=== PATIENT | male | born 1945 | race Caucasian/White ===

== ENCOUNTER → 2018-01-22 | Outpatient (CLI) | payer OTHER ==
[~2018-01-22] MED LIST: ASPI325 PO; ATOR40TA PO; ESOM20 PO; HYDR1TAB94 PO; Hair, Skin & N1 EACH PO; KETO10 PO; LEVSOD100 PO; LISI5 PO; METO25 PO; POLY500 PO
== END ==
LOC: LAB SHORT 13:10 → LAB 13:10
DX: N20.0 Calculus of kidney (principal)
CPT/HCPCS: 82360

== ENCOUNTER 2018-04-02 09:24 | Observation (INO) | payer OTHER ==
[~2018-04-02] VITALS: Ht 177.8 cm; Wt 84.5 kg
[2018-04-02 10:10] LABS: BASOPHILS ABSOLUTE AUTO 0.07 K/mm3 (0.00-0.23); BASOPHILS PERCENT AUTO 1 % (0-2); EOSINOPHILS ABSOLUTE AUTO 0.35 K/mm3 (0.00-0.68); EOSINOPHILS PERCENT AUTO 3 % (0-6); Hematocrit 44.5 % (37.0-53.0); Hemoglobin 14.8 g/dL (13.5-17.5); IMMATURE GRAN ABSOLUTE AUTO 0.07 K/mm3 (0.00-0.10); IMMATURE GRAN PERCENT AUTO 1 % (0-1); LYMPHOCYTES ABSOLUTE AUTO 1.47 K/mm3 (0.84-5.20); LYMPHOCYTES PERCENT AUTO 14 % (21-46); MONOCYTES ABSOLUTE AUTO 1.22 K/mm3 (0.16-1.47); MONOCYTES PERCENT AUTO 12 % (4-13); Mean Corpuscular HGB 30.3 pg (26.0-34.0); Mean Corpuscular HGB Conc 33.3 g/dL (31.5-36.5); Mean Corpuscular Volume 91 fL (80-100); Mean Platelet Volume 10.4 fL (9.1-12.4); NEUTROPHILS ABSOLUTE AUTO 7.06 K/mm3 (1.96-9.15); NEUTROPHILS PERCENT AUTO 69 % (41-73); Platelet Count 222 K/mm3 (150-400); RDW Coefficient Variation 13.7 % (11.7-14.2); RDW Standard Deviation 46.5 fL (35.1-46.3); Red Blood Cell Count 4.88 M/mm3 (4.30-5.90); White Blood Cell Count 10.24 K/mm3 (4.00-11.30)
[2018-04-02 10:22] LABS: Albumin, Blood 3.7 g/dL (3.4-5.0); Albumin/Globulin Ratio 0.8 (0.8-1.8); Bilirubin, Total 0.5 mg/dL (0.1-1.0); Bun/Creatinine Ratio 15.2 (12.0-20.0); Calcium, Blood 8.9 mg/dL (8.5-10.1); Creatinine, Blood 1.84 mg/dL (0.60-1.20); Globulin, Blood 4.6 g/dL (2.2-4.0); Potassium, Blood 4.3 mmol/L (3.5-5.5); Total Protein, Blood 8.3 g/dL (6.4-8.2); Troponin I 0.033 ng/mL (0.000-0.040)
[2018-04-02] MEDS ORDERED: ELIQUIS5 MG PO (11:00)
[2018-04-02 19:18] LABS: Source, Urine Clean Catch
[2018-04-02 19:21] LABS: Bilirubin, Urine Neg (Neg); Blood, Urine 1+ (Neg); Glucose Qualitative, Urine Neg (Neg); Ketones, Urine 1+ (Neg); Leukocyte Esterase, Urine Neg (Neg); Nitrite, Urine Neg (Neg); Protein, Urine Neg (Neg); Specific Gravity, Urine 1.015 (1.003-1.022); Urobilinogen, Urine NORM (Normal)
[2018-04-02 19:30] LABS: Appearance, Urine Clear (Clear); Color, Urine Yellow (P-Yellow)
[2018-04-02 19:31] LABS: White Blood Cells, Urine 0-2 /hpf (0-5)
[2018-04-02 19:32] LABS: Bacteria Few /hpf; Squamous Epithelial Cells Not Seen /hpf (Few)
[2018-04-03 04:11] LABS: Albumin, Blood 3.4 g/dL (3.4-5.0); Anion Gap 9 mmol/L (6-16); Blood Urea Nitrogen 24 mg/dL (8-24); Bun/Creatinine Ratio 17.1 (12.0-20.0); CO2, Blood 25 mmol/L (21-32); Calcium, Blood 8.4 mg/dL (8.5-10.1); Chloride, Blood 106 mmol/L (98-108); Glomerular Filtration Rate 53 (60-); Glucose, Blood 102 mg/dL (70-99); Phosphorus, Blood 3.8 mg/dL (2.5-4.9); Potassium, Blood 4.5 mmol/L (3.5-5.5); Sodium, Blood 140 mmol/L (136-145)
== END 2018-04-03 17:31 | disposition home or self-care (01) ==
LOC: ER 09:24 → MEDS 09:25 → ER 16:09 → MEDS 18:00
PROVIDERS: Emergency Medicine; Internal Medicine Endocrinology, Diabetes & Metabolism
DX: R42 Dizziness and giddiness (principal); E86.9 Volume depletion, unspecified; R06.09 Other forms of dyspnea; R55 Syncope and collapse; E03.9 Hypothyroidism, unspecified; M54.5 Low back pain; G89.29 Other chronic pain; R51 Headache; E78.5 Hyperlipidemia, unspecified; I44.0 Atrioventricular block, first degree; I47.1 Supraventricular tachycardia; R94.31 Abnormal electrocardiogram [ECG] [EKG]; I10 Essential (primary) hypertension; N17.9 Acute kidney failure, unspecified; I49.9 Cardiac arrhythmia, unspecified; Z87.891 Personal history of nicotine dependence; Z79.82 Long term (current) use of aspirin; Z79.899 Other long term (current) drug therapy; Z86.73 Personal history of transient ischemic attack (TIA), and cerebral infarction without residual deficits
CPT/HCPCS: 36415; 71046; 80053; 80069; 81001; 83880; 84484; 85025; 93005; 93010; 93306; 93880; 99285; G0378

== ENCOUNTER 2019-11-29 06:29 | Day surgery (SDC) | payer OTHER ==
[~2019-11-29] VITALS: Ht 180.3 cm; Wt 82.0 kg
[~2019-11-29 06:29] MED LIST changes: +ASCO500 PO; +CALCIUM CIT 311 EACH PO; +COLACE100 MG PO; +ELIQUIS5 MG PO; +VITAMIN D31000 UNI1 PO; +VITAMIN E1000 UNIT PO
[2019-11-29] MEDS ORDERED: THERA1 EACH PO (06:55)
[2019-11-29] MEDS ORDERED: CHELATED POTASSIUM PO (06:57)
[2019-11-29] MEDS ORDERED: IRON SUPPLEMENT PO (06:58)
--- NOTE | 2019-11-29 10:32 | NUR ---
Pt in large sling on Left arm, Pt is very sensitive to touch. Pt voided 250 louise urine. [place] warmer on per pt request.
--- NOTE | 2019-11-29 10:33 | NUR ---
Breakfast given at bedside.
--- NOTE | 2019-11-29 11:30 | NUR ---
LATE ENTRY: PT. TRANSFERRED BY WHEELCHAIR TO ROOM PCU 5. REPORT GIVEN TO EUNICE WOODS. DRESSING HAS SLIGHT DRAINAGE FROM PROVODINE OINTMENT.SLING IN PLACE.
--- NOTE | 2019-11-30 06:50 | NUR ---
SHIFT SUMMARY. ASSUMED CARE AT 1900. VERY UPSET AT THAT TIME DUE TO HERNANDEZ AND INCISIONAL SORENESS. REPORTS NO ONE WOKE HIM UP TO EAT OR GET PAIN MED
--- NOTE | 2019-11-30 09:47 | NUR ---
PCU DISCHARGE SUMMARY PATIENT AMBULATED OUT OF UNIT WITH - PATIENT EDUCATED ON DISCHARGE INSTRUCTION AND POST PACER PRECAUTIONS. PATIENT AND HIS DENIED ANY QUESTIONS REQUARDING HIS DISCHARGE MEDICATIONS AND INSTRUCTIONS. PATIENT LEFT UNIT IN NO ACUTE DISTRESS.
== END 2019-11-30 09:19 | disposition home or self-care (01) ==
LOC: MHTC 06:29 → PCU 12:21 → MHTC 11-30 09:19
PROC: 0JH608Z Insertion of Defibrillator Generator into Chest Subcutaneous Tissue and Fascia, Open Approach (ICD-10-PCS; principal; 2019-11-29)
PROC: 02H63KZ Insertion of Defibrillator Lead into Right Atrium, Percutaneous Approach (ICD-10-PCS; principal; 2019-11-29)
PROC: 02HK3KZ Insertion of Defibrillator Lead into Right Ventricle, Percutaneous Approach (ICD-10-PCS; principal; 2019-11-29)
DX: I47.2 Ventricular tachycardia (principal); I42.1 Obstructive hypertrophic cardiomyopathy; I49.5 Sick sinus syndrome; I48.92 Unspecified atrial flutter; I42.2 Other hypertrophic cardiomyopathy; E78.5 Hyperlipidemia, unspecified; E03.9 Hypothyroidism, unspecified; I10 Essential (primary) hypertension; Z87.891 Personal history of nicotine dependence; Z79.899 Other long term (current) drug therapy; Z79.01 Long term (current) use of anticoagulants; I27.20 Pulmonary hypertension, unspecified
CPT/HCPCS: 33249; 71045; 71046; 76937; 99152; 99153; A9270; A9270-GY; C1721; C1895; C1898; J0360; J0690; J2250; J2405; J3010; J7030

== ENCOUNTER 2019-12-24 21:18 | Emergency (ER) | payer OTHER ==
[~2019-12-24] VITALS: Ht 172.7 cm; Wt 81.7 kg
[~2019-12-24 21:18] MED LIST changes: +CHELATED POTASSIUM PO; +IRON SUPPLEMENT PO; +THERA1 EACH PO
[2019-12-24 21:47] LABS: BASOPHILS ABSOLUTE AUTO 0.06 K/mm3 (0.00-0.23); BASOPHILS PERCENT AUTO 1 % (0-2); EOSINOPHILS ABSOLUTE AUTO 0.23 K/mm3 (0.00-0.68); EOSINOPHILS PERCENT AUTO 4 % (0-6); Hematocrit 43.7 % (37.0-53.0); Hemoglobin 14.5 g/dL (13.5-17.5); IMMATURE GRAN ABSOLUTE AUTO 0.01 K/mm3 (0.00-0.10); IMMATURE GRAN PERCENT AUTO 0 % (0-1); LYMPHOCYTES PERCENT AUTO 25 % (21-46); MONOCYTES ABSOLUTE AUTO 0.69 K/mm3 (0.16-1.47); MONOCYTES PERCENT AUTO 11 % (4-13); Mean Corpuscular HGB 30.5 pg (26.0-34.0); Mean Corpuscular HGB Conc 33.2 g/dL (31.5-36.5); Mean Corpuscular Volume 92 fL (80-100); Mean Platelet Volume 10.4 fL (9.1-12.4); NEUTROPHILS ABSOLUTE AUTO 3.64 K/mm3 (1.96-9.15); NEUTROPHILS PERCENT AUTO 59 % (41-73); Platelet Count 157 K/mm3 (150-400); RDW Coefficient Variation 13.7 % (11.7-14.2); RDW Standard Deviation 46.6 fL (35.1-46.3); Red Blood Cell Count 4.76 M/mm3 (4.30-5.90); White Blood Cell Count 6.13 K/mm3 (4.00-11.30)
[2019-12-24 22:05] LABS: Alanine Aminotransfer (ALT/SGP 29 U/L (12-78); Albumin, Blood 3.7 g/dL (3.4-5.0); Albumin/Globulin Ratio 0.9 (0.8-1.8); Alk Phos 97 U/L (50-136); Anion Gap 5 mmol/L (6-16); Aspartate Aminotrans (AST/SGOT 30 U/L (12-37); Bilirubin, Total 0.3 mg/dL (0.1-1.0); Blood Urea Nitrogen 8 mg/dL (8-24); Bun/Creatinine Ratio 6.6 (12.0-20.0); CO2, Blood 27 mmol/L (21-32); Calcium, Blood 9.1 mg/dL (8.5-10.1); Chloride, Blood 110 mmol/L (98-108); Creatinine, Blood 1.21 mg/dL (0.60-1.20); Globulin, Blood 4.3 g/dL (2.2-4.0); Glomerular Filtration Rate >60 (60-); Glucose, Blood 105 mg/dL (70-99); International Normalized Ratio 1.07; Potassium, Blood 3.9 mmol/L (3.5-5.5); Prothrombin Time Results 11.4 Sec (9.7-11.5); Sodium, Blood 142 mmol/L (136-145)
== END 2019-12-24 23:10 | disposition home or self-care (01) ==
LOC: ER 21:18
PROVIDERS: Emergency Medicine
DX: G45.9 Transient cerebral ischemic attack, unspecified (principal); E03.9 Hypothyroidism, unspecified; E78.5 Hyperlipidemia, unspecified; Z87.891 Personal history of nicotine dependence; Z79.899 Other long term (current) drug therapy
CPT/HCPCS: 36415; 70450; 80053; 85025; 85610; 85730; 93005; 93010; 99285-25

== ENCOUNTER 2020-02-14 11:30 | Day surgery (SDC) | payer OTHER ==
[~2020-02-14] VITALS: Ht 177.8 cm; Wt 79.1 kg
[2020-02-14] MEDS ORDERED: ASPI81CH PO (12:44)
[2020-02-14] MEDS ORDERED: LISI5 (12:44)
--- NOTE | 2020-02-14 16:25 | NUR ---
ASSUMED CARE PT. ARRIVES TO ICU. DROWSY PALE IN COLOR. AFEBRILE. PT. ACE, REPORTS USING CANE FOR AMBULATION. PT. HAS PRESSURE DRESSING TO LEFT CHEST WALL. PT INSTRUCTED ON MOBILITY OF LEFT ARM. VSS UPON ARRIVAL. PT UPDATED ON PT CONDITION AND ARRIVAL TO UNIT. HX OBTAINED FROM PT . PER PT. PT HAS DIFFICULTY SWALLOWING AND NEEDS SOFT PUREED FOODS, DUE TO RECENT CVA. CALL LIGHT IN REACH.
--- NOTE | 2020-02-14 18:02 | NUR ---
SHIFT SUMMARY PT. REMAINS DROWSY POST PROCEDURE HOWEVER AWAKENS EASILY TO VERBAL STIMULI. PT. VSS SINCE ARRIVAL TO ICU. PRESSURE DRESSING REMAINS CDI. NADN. PLANS FOR DISCHARGE TOMORROW. PT UPDATE. REPORT TO ONCOMING RN.
--- NOTE | 2020-02-14 21:30 | NUR ---
ASSUMPTION OF CARE ASSUMED CARE OF PT @ 1900, PT AWAKE IN BED ORIENTED TO SELF, LOCATION, EVENT, AND FOLLOWING DIRECTIONS. 02 SATURATIONS>90% ON RA, MONITOR SHOWS PACED RHYTHM WITH HR 60-64, PT HYPERTENSIVE, SCHEDULED BP MEDICATIONS PROVIDED. PT MEDICATED FOR PAIN TO THE LEFT ARM/SHOULDER RELATED TO AICD PROCEDURE, LEFT ARM REMAINS AT PTS SIDE TO PREVENT PACER DISPLACEMENT. PT VOIDS IN URINAL WITH MINIMAL ASSISTANCE. PT TOLERATING PO INTAKE, EATING WITH MINIMAL ASSISTANCE, SWALLOWS PILLS WHOLE, ONE AT A TIME, WITH PUDDING. CALL LIGHT WITHIN REACH.
--- NOTE | 2020-02-15 00:32 | NUR ---
PT RESTING IN BED, AROUSES TO VERBAL STIMULI, REMAINS ORIENTED x4, DENIES ANY NEEDS AT THIS TIME.
--- NOTE | 2020-02-15 06:07 | NUR ---
SHIFT SUMMARY PT RESTED T/O SHIFT, REMAINS AROUSABLE TO VERBAL STIMULI AND ORIENTED TO SELF, EVENT, LOCATION AND FOLLOWING DIRECTIONS. PT REMAINS ON RA ALL NIGHT, O2 SATURATIONS MAINTAINED>95%, MONITOR SHOWS PACED RHYTHM, BP STABLE. PT VOIDING IN URINAL AT BEDSIDE WITH MINIMAL ASSISTANCE, TOLERATING PO INTAKE. L ANTERIOR SURGICAL SITE WITH PRESSURE DRESSING C/D/I, PT REPORTS SOME PAIN WITH MOVEMENT OR SMALL ADJUSTMENTS, NORCO PROVIDED AT BEGINNING OF SHIFT, DECLINES PAIN MEDICATIONS THIS AM. PT CURRENTLY AWAKE WATCHING TV IN BED, CALL LIGHT WITHIN REACH.
--- NOTE | 2020-02-15 08:35 | NUR ---
ASSESSMENT- PT AWAKE, ALERT, COOPERATIVE. STATES LEFT CHEST SORE-RATES 1 ON SCALE, DENIES ANY NEED FOR PAIN RX. DR. OLEARY HERE-UPDATED. PLANS FOR DISCHARGE, REVIEWED INSTRUCTIONS. PT STATES UNDERSTANDING. NEED TO SLEEP ON RIGHT SIDE OR BACK, NOT ON LEFT. RESTRICTIONS FOR ARM REVIEWED. VSS. ABLE TO TAKE PILLS WITH APPLESAUCE. PIV INTACT, ANTIBIOTIC INFUSING
[2020-02-15] MEDS ORDERED: LINE600 PO (09:53)
--- NOTE | 2020-02-15 10:12 | NUR ---
PT'S DAUGHTER HERE-REVIEWED DISCHARGE INSTRUCTIONS WITH HER, QUESTIONS ANSWERED
--- NOTE | 2020-02-15 10:41 | NUR ---
DISCHARGE INSTRUCTIONS REVIEWED WITH PT BY HODA WOODS. PT STATES UNDERSTANDING. LEFT ARM SLING IN PLACE. PT DENIES COMPLAINTS.
== END 2020-02-15 10:35 | disposition home or self-care (01) ==
LOC: MHTC 11:30 → ICUE 16:29 → MHTC 02-15 10:35
DX: T82.837A Hemorrhage due to cardiac prosthetic devices, implants and grafts, initial encounter (principal); I10 Essential (primary) hypertension; Z87.891 Personal history of nicotine dependence; Z79.82 Long term (current) use of aspirin; Z79.01 Long term (current) use of anticoagulants; Z79.899 Other long term (current) drug therapy
CPT/HCPCS: 10140; 99152; 99153; A9270-GY; C1781; C9113; J0690; J1644; J2250; J3010; J7030; J7040; J7050

== ENCOUNTER 2020-03-21 07:43 | Day surgery (SDC) | payer OTHER ==
[~2020-03-21] VITALS: Ht 177.8 cm; Wt 75.7 kg
[~2020-03-21 07:43] MED LIST changes: +ASPI81CH PO; +LINE600 PO; +LISI5
--- NOTE | 2020-03-21 10:36 | NUR ---
03/21/20 1036 Shawna Royal PT. VERBALIZES HAS A SORE THROAT BUT NO TROUBLE SWALLOWING. PT. INSTRUCTED HE COULD HAVE A SORE THROAT FOR MAYBE A COUPLE OF DAYS SINCE DR. ROMAN DID DILITATION.
== END 2020-03-21 10:19 | disposition home or self-care (01) ==
LOC: ORSCSDS 07:43
PROVIDERS: Internal Medicine Gastroenterology
PROC: 0DJ08ZZ Inspection of Upper Intestinal Tract, Via Natural or Artificial Opening Endoscopic (ICD-10-PCS; principal; 2020-03-21 09:15)
PROC: 0D758ZZ Dilation of Esophagus, Via Natural or Artificial Opening Endoscopic (ICD-10-PCS; principal; 2020-03-21 09:15)
DX: R13.10 Dysphagia, unspecified (principal); I25.2 Old myocardial infarction; E03.9 Hypothyroidism, unspecified; E78.5 Hyperlipidemia, unspecified; D64.9 Anemia, unspecified; K21.9 Gastro-esophageal reflux disease without esophagitis; Z87.891 Personal history of nicotine dependence; I48.0 Paroxysmal atrial fibrillation; Z79.01 Long term (current) use of anticoagulants; Z79.899 Other long term (current) drug therapy
CPT/HCPCS: J2405; J2704; J7120

== ENCOUNTER → 2020-03-26 | Outpatient (CLI) | payer OTHER | END | disposition home or self-care (01) | LOC: LAB SHORT 10:37 → LAB EV 10:37 | DX: L30.4 Erythema intertrigo (principal) | CPT/HCPCS: 87070; 87205 ==

== ENCOUNTER → 2021-02-23 | Outpatient (CLI) | payer OTHER ==
[~2021-02-23] MED LIST changes: -ASPI81CH PO; +Aspir 8181 MG PO; +CALCIUM 600 +1 EA11 PO; -CALCIUM CIT 311 EACH PO; +FAMO20 PO; +LEVE500 PO; -LISI5; +MULVITA PO; -THERA1 EACH PO
[2021-02-23 10:43] LABS: BASOPHILS ABSOLUTE AUTO 0.05 K/mm3 (0.00-0.23); BASOPHILS PERCENT AUTO 1 % (0-2); EOSINOPHILS ABSOLUTE AUTO 0.18 K/mm3 (0.00-0.68); EOSINOPHILS PERCENT AUTO 3 % (0-6); Hematocrit 45.2 % (37.0-53.0); IMMATURE GRAN ABSOLUTE AUTO 0.01 K/mm3 (0.00-0.10); IMMATURE GRAN PERCENT AUTO 0 % (0-1); LYMPHOCYTES ABSOLUTE AUTO 1.04 K/mm3 (0.84-5.20); LYMPHOCYTES PERCENT AUTO 19 % (21-46); MONOCYTES ABSOLUTE AUTO 0.56 K/mm3 (0.16-1.47); MONOCYTES PERCENT AUTO 11 % (4-13); Mean Corpuscular HGB 30.1 pg (26.0-34.0); Mean Corpuscular HGB Conc 33.2 g/dL (31.5-36.5); Mean Corpuscular Volume 91 fL (80-100); NEUTROPHILS ABSOLUTE AUTO 3.51 K/mm3 (1.96-9.15); NEUTROPHILS PERCENT AUTO 66 % (41-73); Platelet Count 156 K/mm3 (150-400); RDW Coefficient Variation 14.4 % (11.7-14.2); RDW Standard Deviation 47.7 fL (35.1-46.3); Red Blood Cell Count 4.98 M/mm3 (4.30-5.90); White Blood Cell Count 5.35 K/mm3 (4.00-11.30)
[2021-02-23 10:52] LABS: Alanine Aminotransfer (ALT/SGP 53 U/L (12-78); Alk Phos 88 U/L (40-126); Amylase, Blood 39 U/L (25-115); Anion Gap 8 mmol/L (6-16); Aspartate Aminotrans (AST/SGOT 32 U/L (12-37); Bilirubin, Total 0.5 mg/dL (0.1-1.0); Blood Urea Nitrogen 19 mg/dL (8-24); Bun/Creatinine Ratio 16.7 (12.0-20.0); CO2, Blood 29 mmol/L (21-32); Calcium, Blood 8.9 mg/dL (8.5-10.1); Chloride, Blood 105 mmol/L (98-108); Creatinine, Blood 1.14 mg/dL (0.60-1.20); Globulin, Blood 3.9 g/dL (2.2-4.0); Glomerular Filtration Rate >60 (60-); Glucose, Blood 106 mg/dL (70-99); Potassium, Blood 4.3 mmol/L (3.5-5.5); Sodium, Blood 142 mmol/L (136-145); Total Protein, Blood 7.9 g/dL (6.4-8.2)
== END | disposition home or self-care (01) ==
LOC: LAB EV 10:37 → LAB SHORT 10:37
PROVIDERS: General Practice
DX: R14.0 Abdominal distension (gaseous) (principal)
CPT/HCPCS: 80053; 82150; 85025

== ENCOUNTER 2021-09-19 10:42 | Inpatient (IN) | payer OTHER ==
[~2021-09-19] VITALS: Ht 177.8 cm; Wt 77.7 kg
[2021-09-19 11:00] LABS: Calcium, Ionized (POC) 1.18 mmol/L (1.10-1.46); Chloride (POC) 109 mmol/L (98-108); Creatinine (POC) 1.3 mg/dL (0.8-1.3); Glucose (ISTAT POC) 103 mg/dL (70-99); Hemoglobin (POC) 16.3 g/dL (13.5-17.5); PCO2 Arterial 42.8 mmHg (35-45); PO2 Arterial 256 mmHg (80-100); Sodium (POC) 144 mmol/L (135-148); Total CO2 (POC) 20 mmol/L (21-32); pH Blood Arterial 7.29 (7.35-7.45)
[2021-09-19 11:23] LABS: Albumin, Blood 3.8 g/dL (3.4-5.0); Albumin/Globulin Ratio 0.8 (0.8-1.8); Bilirubin, Total 0.4 mg/dL (0.1-1.0); Bun/Creatinine Ratio 9.2 (12.0-20.0); Calcium, Blood 9.3 mg/dL (8.5-10.1); Creatinine, Blood 1.3 mg/dL (0.60-1.20); Globulin, Blood 4.5 g/dL (2.2-4.0); Potassium, Blood 3.9 mmol/L (3.5-5.5); Total Protein, Blood 8.3 g/dL (6.4-8.2); Troponin I 0.026 ng/mL (0.000-0.040)
[2021-09-19 11:33] LABS: International Normalized Ratio 1.14; Prothrombin Time Results 11.9 Sec (9.7-11.5)
[2021-09-19 11:37] LABS: BASOPHILS ABSOLUTE AUTO 0.08 K/mm3 (0.00-0.23); BASOPHILS PERCENT AUTO 1 % (0-2); EOSINOPHILS ABSOLUTE AUTO 0.16 K/mm3 (0.00-0.68); EOSINOPHILS PERCENT AUTO 3 % (0-6); Hematocrit 47.7 % (37.0-53.0); Hemoglobin 15.4 g/dL (13.5-17.5); IMMATURE GRAN ABSOLUTE AUTO 0.06 K/mm3 (0.00-0.10); IMMATURE GRAN PERCENT AUTO 1 % (0-1); LYMPHOCYTES ABSOLUTE AUTO 2.03 K/mm3 (0.84-5.20); LYMPHOCYTES PERCENT AUTO 34 % (21-46); MONOCYTES ABSOLUTE AUTO 0.69 K/mm3 (0.16-1.47); MONOCYTES PERCENT AUTO 12 % (4-13); Mean Corpuscular HGB 30.3 pg (26.0-34.0); Mean Corpuscular HGB Conc 32.3 g/dL (31.5-36.5); Mean Corpuscular Volume 94 fL (80-100); Mean Platelet Volume 11.1 fL (9.1-12.4); NEUTROPHILS ABSOLUTE AUTO 2.94 K/mm3 (1.96-9.15); NEUTROPHILS PERCENT AUTO 49 % (41-73); Platelet Count 159 K/mm3 (150-400); RDW Coefficient Variation 13.7 % (11.7-14.2); RDW Standard Deviation 46.9 fL (35.1-46.3); Red Blood Cell Count 5.09 M/mm3 (4.30-5.90); White Blood Cell Count 5.96 K/mm3 (4.00-11.30)
[2021-09-19 11:53] LABS: Influenza A, PCR NEGATIVE (NEGATIVE); Influenza B, PCR NEGATIVE (NEGATIVE); Resp Syncytial Virus, PCR NEGATIVE (NEGATIVE); SARS-Cov-2 (COVID-19) PCR, MMC NEGATIVE (NEGATIVE)
--- NOTE | 2021-09-19 17:39 | NUR ---
EXTUBATED, AOX2 TO SELF AND TIME, SHORT TERM MEMORY ISSUES, FREQUENT REMINDERS ABOUT CARE DESPITE EDUCATION, PUPILS 3MM BRISK,FACIAL DROOP L SIDE AND L SIDED WEAKNESS BASELINE PER , WELL SOME SLURRING SPEECH, NSR 70/80S, +2 PULSES, BP WNL TO HTN SBP<160, LUNGS COARSE TOLERATING 2L NC, GRAJEDA DRAINING CLEAR YELLOW OUTPUT, BOWELS AUDIBLE, CT HEAD NEGATIVE, MRI PENDING FOR TOMORROW.
--- NOTE | 2021-09-19 20:49 | NUR ---
ASSUME CARE: PT LYING IN BED AND IS ALERT AND ORIENTED EXCEPT TO EVENT. HE HAS SOME LEFT-SIDE FACIAL DROOPING AND WEAKNESS THAT IS, PER HIS , HIS BASELINE FROM A PRIOR CVA. ON 2LNC HE IS SATING 97% AND ALL VITALS ARE WNL. GRAJEDA IN PLACE IS DRAINING CLEAR, YELLOW URINE TO GRAVITY. HE IS NPO FOR A FAILED BEDSIDE SWALLOW. HE DENIES PAIN AND DOES NOT REMEMBER HIS LBM. SKIN IS WARM, DRY, AND INTACT. SEE SHIFT ASSESSMENT FOR DETAILS.
[2021-09-20 03:50] LABS: BASOPHILS ABSOLUTE AUTO 0.04 K/mm3 (0.00-0.23); BASOPHILS PERCENT AUTO 1 % (0-2); EOSINOPHILS ABSOLUTE AUTO 0.04 K/mm3 (0.00-0.68); EOSINOPHILS PERCENT AUTO 1 % (0-6); Hematocrit 43.2 % (37.0-53.0); Hemoglobin 14.4 g/dL (13.5-17.5); IMMATURE GRAN ABSOLUTE AUTO 0.02 K/mm3 (0.00-0.10); IMMATURE GRAN PERCENT AUTO 0 % (0-1); LYMPHOCYTES ABSOLUTE AUTO 1.07 K/mm3 (0.84-5.20); LYMPHOCYTES PERCENT AUTO 13 % (21-46); MONOCYTES ABSOLUTE AUTO 0.74 K/mm3 (0.16-1.47); MONOCYTES PERCENT AUTO 9 % (4-13); Mean Corpuscular HGB 29.8 pg (26.0-34.0); Mean Corpuscular HGB Conc 33.3 g/dL (31.5-36.5); Mean Platelet Volume 10.8 fL (9.1-12.4); NEUTROPHILS ABSOLUTE AUTO 6.25 K/mm3 (1.96-9.15); NEUTROPHILS PERCENT AUTO 77 % (41-73); Platelet Count 151 K/mm3 (150-400); RDW Coefficient Variation 13.7 % (11.7-14.2); RDW Standard Deviation 44.8 fL (35.1-46.3); Red Blood Cell Count 4.83 M/mm3 (4.30-5.90); White Blood Cell Count 8.16 K/mm3 (4.00-11.30)
[2021-09-20 04:02] LABS: Mean Corpuscular Volume 89 fL (80-100)
[2021-09-20 04:32] LABS: Bun/Creatinine Ratio 12.4 (12.0-20.0); Calcium, Blood 8.9 mg/dL (8.5-10.1); Creatinine, Blood 1.21 mg/dL (0.60-1.20); Potassium, Blood 3.9 mmol/L (3.5-5.5)
--- NOTE | 2021-09-20 07:10 | NUR ---
SHIFT SUMMARY: NO ACUTE OVERNIGHT EVENTS. PT SLEPT MOST THE NIGHT W/ NO COMPLAINTS. HE IS ALERT AND ORIENTED AND DENIES PAIN. LEFT-SIDED DEFICETS REMAINED STABLE/BASELINE. ALL VITALS WNL AND TMAX WAS 99.3. REPORT GIVEN TO YESSENIA WOODS.
--- NOTE | 2021-09-20 10:06 | NUR ---
I called and talked to Svetlana Vera who is the patient's . She states that the patient lives in a two story home with her and their son who help him with ADLs. Pt has received home health services in the past and prefers [facility] for home health. Pt's prefers to do the driving given the pt's past medical history. Son also helps with transportation. Pt does not currently have any dme - will wait for PT to evaluate patient for recommendations. Pts also helps with medication management and states they would prefer [facility] if it is recommended the pt discharge to a SNF. Pt is not a .
--- NOTE | 2021-09-20 17:07 | NUR ---
SHIFT SUMMARY NO ACUTE CHANGES THIS SHIFT. PT HAS REMAINED AWAKE, ALERT, AND ORIENTED THROUGHOUT THE DAY WITH PERIODS OF NAPPING. PT HAS DENIED ANY PAIN OR DISCOMFORT. VITAL SIGNS HAVE REMAINED STABLE. PT ON ROOM AIR. PT WORKED WITH PT AND OT THIS SHIFT. PT UP OUT OF BED WITH MINIMAL ASSISTANCE TO VOID. IV'S SALINE LOCKED. PT TOLERATING PO FOODS WELL. PT SPOUSE AT BEDSIDE THIS AFTERNOON. WILL CONTINUE TO MONITOR AND REPORT OFF TO ONCOMING RN.
--- NOTE | 2021-09-20 21:26 | NUR ---
ASSUME CARE: PT RESTING BUT IS EASILY AROUSABLE AND ALERT AND ORIENTED. HE USES THE BEDSIDE URINAL AND IS UP TO THE TOILET W/ 1 ASSIST. SOME SLURRED SPEECH AND LEFT-SIDED DEFICETS THAT ARE BASELINE NOTED. HE IS ON RA AND ALL VITALS WNL. HE DENIES PAIN AND IS AFEBRILE. HE IS ABLE TO TAKE HIS MEDICATIONS WHOLE W/ APPLESAUCE. HIS 2 PIVS ARE C/D/I AND SALINE LOCKED. PLAN IS TO GO TOMORROW. SEE SHIFT ASSESSMENT FOR DETAILS.
--- NOTE | 2021-09-21 05:46 | NUR ---
SHIFT SUMMARY: NO ACUTE OVERNIGHT EVENTS. PT RESTING QUIETLY IN BED AND IS EASILY AROUSABLE AND ALERT/ORIENTED. HE HAS NO COMPLAINTS OF PAIN AND HAS REMAINED AFEBRILE. HE IS ON RA AND ALL VITALS HAVE REMAINED STABLE. HE USES THE BEDSIDE URINAL TO VOID AND HAD NO BM OVERNIGHT. HE TOLERATED TAKING HIS MEDS WHOLE WITH APPLESAUCE. ONLY SLIGHT BASELINE LEFT-SIDED DEFICETS ARE NOTED. WILL REPORT TO ONCOMING RN WHEN AVAILABLE.
--- NOTE | 2021-09-21 08:00 | NUR ---
ASSUMED CARE PT. ALERT AND ORIENTED THIS AM. DENIES PAIN. SITTING UP IN BED AWAITING BREAKFAST. PT. VSS THIS AM. NADN. CALL LIGHT IN REACH.
--- NOTE | 2021-09-21 13:40 | NUR ---
PT DISCHARGED HOME. ABLE TO GET SELF DRESSED WITH MINIMAL ASSIST FROM . VSS UPON DISCHARGE. PT. DISCHARGE INSTRUCTIONS REVIEWED WITH AND PATIENT. NO CHANGES TO MEDICATIONS AT THIS TIME. IVS REMOVED AND PT WHEELED TO EXIT.
--- NOTE | 2021-09-21 15:10 | NUR ---
Per chart review with Dr. Arriaga, patient is appropriate for discharge. Patient denied barriers to discharge. Patient's , Pat, provided transportation for patient to discharge from [facility]. Home health services were ordered by Dr. Arriaga. I contacted Summer with [facility] and she contacted the patient to start those services. I also scheduled a hospital follow up with Ifeoma Rhodes on Friday, September 24, 2021 at 11:00 AM. Pt and his are aware of the follow up.
== END 2021-09-21 13:50 | disposition home or self-care (01) | DRG 100 ==
LOC: ER 10:42 → ICUW 13:34 → ICUE 13:34
PROVIDERS: Emergency Medicine; ADMIT Internal Medicine
PROC: 5A1935Z Respiratory Ventilation, Less than 24 Consecutive Hours (ICD-10-PCS; principal; 2021-09-19)
DX: G40.409 Other generalized epilepsy and epileptic syndromes, not intractable, without status epilepticus (principal); J96.90 Respiratory failure, unspecified, unspecified whether with hypoxia or hypercapnia; E87.2 Acidosis; I42.1 Obstructive hypertrophic cardiomyopathy; Z20.822 Contact with and (suspected) exposure to COVID-19; I48.91 Unspecified atrial fibrillation; I65.21 Occlusion and stenosis of right carotid artery; K21.9 Gastro-esophageal reflux disease without esophagitis; E03.9 Hypothyroidism, unspecified; N40.0 Benign prostatic hyperplasia without lower urinary tract symptoms; I10 Essential (primary) hypertension; E78.5 Hyperlipidemia, unspecified; I25.10 Atherosclerotic heart disease of native coronary artery without angina pectoris; Z86.73 Personal history of transient ischemic attack (TIA), and cerebral infarction without residual deficits; Z98.890 Other specified postprocedural states; Z79.01 Long term (current) use of anticoagulants; Z79.899 Other long term (current) drug therapy; Z85.89 Personal history of malignant neoplasm of other organs and systems
CPT/HCPCS: 0241U; 36415; 36600; 51702; 70450; 70496; 70498; 71045; 80047; 80048; 80053; 80177; 82803; 82947; 83735; 84484; 85014; 85025; 85610; 85730; 92610; 93005; 93010; 94002; 96365-59; 96375-59; 97116; 97162; 97165; 97530; 99291-25; A9270; J1650; J1953; J2060; J2704; Q9967

== ENCOUNTER → 2023-01-15 | Outpatient (CLI) | payer OTHER ==
[2023-01-15 11:57] LABS: BASOPHILS ABSOLUTE AUTO 0.05 K/mm3 (0.00-0.23); BASOPHILS PERCENT AUTO 1 % (0-2); EOSINOPHILS ABSOLUTE AUTO 0.13 K/mm3 (0.00-0.68); EOSINOPHILS PERCENT AUTO 3 % (0-6); Hematocrit 44.2 % (37.0-53.0); Hemoglobin 14.7 g/dL (13.5-17.5); IMMATURE GRAN ABSOLUTE AUTO 0.01 K/mm3 (0.00-0.10); IMMATURE GRAN PERCENT AUTO 0 % (0-1); LYMPHOCYTES ABSOLUTE AUTO 1.04 K/mm3 (0.84-5.20); LYMPHOCYTES PERCENT AUTO 20 % (21-46); MONOCYTES ABSOLUTE AUTO 0.58 K/mm3 (0.16-1.47); MONOCYTES PERCENT AUTO 11 % (4-13); Mean Corpuscular HGB 29.5 pg (26.0-34.0); Mean Corpuscular HGB Conc 33.3 g/dL (31.5-36.5); Mean Corpuscular Volume 89 fL (80-100); Mean Platelet Volume 10.6 fL (9.1-12.4); NEUTROPHILS ABSOLUTE AUTO 3.39 K/mm3 (1.96-9.15); NEUTROPHILS PERCENT AUTO 65 % (41-73); Platelet Count 146 K/mm3 (150-400); RDW Coefficient Variation 13.8 % (11.7-14.2); Red Blood Cell Count 4.98 M/mm3 (4.30-5.90)
== END | disposition home or self-care (01) ==
LOC: LAB 11:49 → LAB SHORT 11:49
PROVIDERS: Physician Assistant
DX: K62.5 Hemorrhage of anus and rectum (principal)
CPT/HCPCS: 85025

== ENCOUNTER 2023-10-23 12:39 | Day surgery (SDC) | payer OTHER ==
[~2023-10-23] VITALS: Ht 172.7 cm; Wt 89.6 kg
[~2023-10-23 12:39] MED LIST changes: +CALTRATE 600 P1 EACH PO; +Lopressor 25 mg25 MG PO; +MULTI-VITAMIN1 EAC2 PO
[2023-10-23] MEDS ORDERED: Triamcinolone A15 G3 TOP (13:08)
[2023-10-23] MEDS ORDERED: ALEVAZOL56.7 G1 TOP (13:09)
[2023-10-23] MEDS ORDERED: POLY500 PO (13:09)
[2023-10-23 14:55] VITALS: BP 115/72
--- NOTE | 2023-10-23 14:56 | NUR ---
10/23/23 1456 Kya Raza IV, DC'Ellen AT 1440/CATHETER WNL
== END 2023-10-23 14:50 | disposition home or self-care (01) ==
LOC: ORSCSDS 12:39
PROVIDERS: Specialist
PROC: 0DJ08ZZ Inspection of Upper Intestinal Tract, Via Natural or Artificial Opening Endoscopic (ICD-10-PCS; principal; 2023-10-23 13:45)
DX: R13.10 Dysphagia, unspecified (principal); I10 Essential (primary) hypertension; I48.91 Unspecified atrial fibrillation; Z87.891 Personal history of nicotine dependence; K21.9 Gastro-esophageal reflux disease without esophagitis; R56.9 Unspecified convulsions; Z79.899 Other long term (current) drug therapy
CPT/HCPCS: J2001; J2704; J7120

== ENCOUNTER → 2024-08-09 | Outpatient (CLI) | payer OTHER ==
[~2024-08-09] MED LIST changes: +ALEVAZOL56.7 G1 TOP; +Triamcinolone A15 G3 TOP
[2024-08-10 08:44] LABS: Adenovirus F 40/41 Not Detected (NOT DETECT); Astrovirus Not Detected (NOT DETECT); Campylobacter Sp Not Detected (NOT DETECT); Cryptosporidium Not Detected (NOT DETECT); Cyclospora Cayetanensis Not Detected (NOT DETECT); E. Coli O157 Not Detected (NOT DETECT); Entamoeba Histolytica Not Detected (NOT DETECT); Enteroaggregative E. coli-EAEC Not Detected (NOT DETECT); Enteropathogenic E. coli-EPEC Not Detected (NOT DETECT); Enterotoxigenic E. coli-ETEC Not Detected (NOT DETECT); Giardia Lamblia Not Detected (NOT DETECT); Norovirus GI/GII Not Detected (NOT DETECT); Plesiomonas Shigelloides Not Detected (NOT DETECT); Rotavirus A Not Detected (NOT DETECT); Salmonella Sp Not Detected (NOT DETECT); Sapovirus Not Detected (NOT DETECT); Shiga Toxin-prod E. coli-STEC Not Detected (NOT DETECT); Shigella/Enteroin E. coli-EIEC Not Detected (NOT DETECT); Vibrio Cholerae Not Detected (NOT DETECT); Vibrio Sp Not Detected (NOT DETECT); Yersinia Enterocolitica Not Detected (NOT DETECT)
[2024-08-10 23:40] LABS: CALPROTECTIN,FECAL 112 ug/g (<=49)
== END ==
LOC: LAB SHORT 11:15 → LAB 11:15
PROVIDERS: Nurse Practitioner Family
DX: R19.7 Diarrhea, unspecified (principal); R10.84 Generalized abdominal pain
CPT/HCPCS: 36415; 83993; 87507

== ENCOUNTER → 2025-01-13 | Outpatient (CLI) | payer OTHER ==
[2025-01-13 21:01] LABS: Adenovirus F 40/41 Not Detected (NOT DETECT); Astrovirus Not Detected (NOT DETECT); Campylobacter Sp Detected (NOT DETECT); Cryptosporidium Not Detected (NOT DETECT); Cyclospora Cayetanensis Not Detected (NOT DETECT); E. Coli O157 Not Detected (NOT DETECT); Entamoeba Histolytica Not Detected (NOT DETECT); Enteroaggregative E. coli-EAEC Not Detected (NOT DETECT); Enteropathogenic E. coli-EPEC Not Detected (NOT DETECT); Enterotoxigenic E. coli-ETEC Not Detected (NOT DETECT); Giardia Lamblia Not Detected (NOT DETECT); Norovirus GI/GII Not Detected (NOT DETECT); Plesiomonas Shigelloides Not Detected (NOT DETECT); Rotavirus A Not Detected (NOT DETECT); Salmonella Sp Not Detected (NOT DETECT); Sapovirus Not Detected (NOT DETECT); Shiga Toxin-prod E. coli-STEC Not Detected (NOT DETECT); Shigella/Enteroin E. coli-EIEC Not Detected (NOT DETECT); Vibrio Cholerae Not Detected (NOT DETECT); Vibrio Sp Not Detected (NOT DETECT); Yersinia Enterocolitica Not Detected (NOT DETECT)
[2025-01-19 16:50] LABS: PANCREATIC ELASTASE,FECAL 203 ug/g (>=100)
== END ==
LOC: LAB SHORT 08:45 → LAB 08:45
PROVIDERS: Physician Assistant Medical
DX: R19.7 Diarrhea, unspecified (principal)
CPT/HCPCS: 82653; 87507

== ENCOUNTER 2025-04-21 09:18 | Day surgery (SDC) | payer OTHER ==
[~2025-04-21] VITALS: Ht 177.8 cm; Wt 86.1 kg
[2025-04-21] MEDS ORDERED: Vitamin D1000 UNI1 (09:37)
[2025-04-21] MEDS ORDERED: MAGCIT300 (09:38)
[2025-04-21] MEDS ORDERED: LOPERAMIDE212 (09:38)
--- NOTE | 2025-04-21 10:16 | NUR ---
04/21/25 DEJUAN GREGORY AT BEDSIDE
[2025-04-21 11:54] VITALS: BP 145/83
== END 2025-04-21 12:06 | disposition home or self-care (01) ==
LOC: ORSCSDS 09:18
PROVIDERS: Specialist
PROC: 0DJD8ZZ Inspection of Lower Intestinal Tract, Via Natural or Artificial Opening Endoscopic (ICD-10-PCS; principal; 2025-04-21 11:00)
DX: R19.7 Diarrhea, unspecified (principal); K64.8 Other hemorrhoids; K57.30 Diverticulosis of large intestine without perforation or abscess without bleeding; I10 Essential (primary) hypertension; K21.9 Gastro-esophageal reflux disease without esophagitis; E78.5 Hyperlipidemia, unspecified; I48.91 Unspecified atrial fibrillation; I48.0 Paroxysmal atrial fibrillation; Z79.01 Long term (current) use of anticoagulants; I63.9 Cerebral infarction, unspecified; E03.9 Hypothyroidism, unspecified; Z87.891 Personal history of nicotine dependence; Z79.899 Other long term (current) drug therapy
CPT/HCPCS: J2704; J7120